=== PATIENT | male | born 1950 | race Caucasian/White ===

== ENCOUNTER 2017-04-16 13:17 | Inpatient (IN) | payer OTHER ==
[~2017-04-16] VITALS: Ht 177.8 cm; Wt 73.2 kg
[2017-04-16] VITALS (7 sets, daily range): BP systolic 112–163; BP diastolic 63–88; PULSE 52–63; RESP 13–19; O2SAT 94–97
--- NOTE | 2017-04-16 13:56 | ED.REPORT ---
HPI-Chest Pain 40 and Over Date of Service Apr 16, 2017 ED Provider: Krzysztof Pelayo MD Pt is an otherwise healthy 66 year old male who presents to the ED complaining of intermittent tight chest pain (2x) onset today. He c/o associated SOB, diaphoresis, and dyspnea with exertion. His pain radiates to his right shoulder blade, neck, and arms bilaterally. He denies hematuria, hematochezia, and any other symptoms. Per pt, he does not have history of ulcers or cardiac medical problems. Pt reports that his symptoms are exacerbated with activity and relieved with rest. He has experienced similar episodes for the last 4 months. The pt has taken 243 mg of ASA (.5 of a 325 mg and an 81mg tablet) prior to arrival with minimal relief. Pt presented to the ED on 02/05/04 with similar symptoms. He was admitted for monitoring with myocardial infarction ruled out upon discharged on 02/06/04. He reports that both his younger and older bother have a history of cardiac related medical issues that have led to multiple stents. Nursing Notes Stated Complaint: CHEST PAIN/SENT FROM URGENT CARE Chief Complaint: Chest Pain Nursing Notes Reviewed: Yes ([facility], meds not reconciled) Allergies: Coded Allergies: No Known Allergies (Verified , 02/05/04) No Active Prescriptions or Reported Meds General Time Seen by MD: 13:55 Chief Complaint Chest pain Hx Obtained From: Patient Arrived By: Walk-in Sudden in Onset?: Yes Onset Occurred: 5 - 8 hours ago Symptom Duration: Intermittent Location: : Substernal Quality: Painful Migration/Movement: Reports: None Severity: Current: Moderate Severity: Maximum: Moderate Recent Healthcare: No recent doctor visit, No recent hospitalization Similar Sx Previous: Yes Past Medical History Past Medical History Notes: Pt presented to the ED on 02/05/04 with similar symptoms. He was admitted for monitoring with myocardial infarction ruled out upon discharged on 02/06/04. Past Surgical History Reports: Tonsillectomy Family History He reports that both his younger and older bother have a history of cardiac related medical issues that have led to multiple stents. His older bother is a smoker, and the younger brother is an alcoholic. Smoking History Never Smoker Social History Alcohol Use: "Social" Drug Use: Denies drug use Other Social History: Good social support Ambulatory Status Independent Review of Systems Respiratory: Reports: Dyspnea on exertion, Shortness of breath Cardiovascular: Reports: Chest pain GI: Denies: Hematochezia Musculoskeletal: Reports: Extremity pain Complete sys rev & neg: except as marked. Female: Denies: Hematuria Physical Exam Initial Vital Signs Vital Signs (First) Date Time Temp Pulse Resp B/P Pulse Ox O2 Delivery O2 Flow Rate FiO2 04/16/17 13:29 36.8 60 13 136/72 97 Room Air Initial VS: Reviewed, Vital signs normal Head / Eyes: Atraumatic, Normocephalic Neck: Supple, Full range of motion Extremities: Vascular intact, Neuro intact Skin: Warm, Dry, No cyanosis Neurologic: Alert, Oriented, Nonfocal Psychiatric: Mood/affect normal, Behavior normal General/Constitutional: Awake, Alert Respiratory / Chest: Atraumatic, Breath sounds NL, Breath sounds = bilat Cardiovascular: Heart rate NL, Regular rhythm, Heart sounds NL Abdomen: Atraumatic, Soft, Non-tender Interpretation & Diagnostics Lab Results Interpretation Result Diagram: 04/16/17 1355 04/16/17 1342 Test 04/16/17 13:42 04/16/17 13:55 Sodium Level 136mEq/L (134-144) Potassium Level 4.4mEq/L (3.5-5.2) Chloride Level 99mEq/L (97-108) Carbon Dioxide Level 23mmol/L (18-29) Blood Urea Nitrogen 26mg/dL (8-27) Creatinine 1.01mg/dL (0.76-1.27) Estimat Glomerular Filtration Rate 79mL/min (>59) Glucose Level 96mg/dL (60-99) Calcium Level 9.5mg/dL (8.5-10.1) Magnesium Level 2.1mg/dL (1.6-2.6) Total Bilirubin 0.5mg/dL (0.0-1.2) Aspartate Amino Transf (AST/SGOT) 31U/L (0-50) Alanine Aminotransferase (ALT/SGPT) 27U/L (0-44) Alkaline Phosphatase 81U/L (25-160) Troponin T 0.054ug/L (0.0-0.011) Total Protein 6.9g/dL (6.4-8.4) Albumin 4.4g/dL (3.4-5.0) White Blood Count 7.0th/mm3 (3.8-10.1) Red Blood Count 4.75mil/mm3 (4.40-5.80) Hemoglobin 14.2g/dL (13.8-17.2) Hematocrit 41.8% (41.0-50.0) Mean Corpuscular Volume 88.0fL (81-100) Mean Corpuscular Hemoglobin 29.9pg (27.0-35.0) Mean Corpuscular Hemoglobin Concent 34.0% (32.0-37.0) Red Cell Distribution Width 13.3% (12.3-15.4) Platelet Count 129bil/L (150-400) Neutrophils (%) (Auto) 71.8% (40-74) Lymphocytes (%) (Auto) 17.0% (14-46) Monocytes (%) (Auto) 7.7% (4-12) Eosinophils (%) (Auto) 3.1% (0-5) Basophils (%) (Auto) 0.3% (0-3) Lab Results Interpretation: CBC nl CMP nl troponin #1 positive ECG Interpretation ECG Interpretation: Normal sinus rhythm with peacked T-waves anteriorly compared to ECG in 08/2015; non-specific finding Time: 13:17 Interpreted by: ED physician Re-Eval/Medical Decision Med Decision/Clinical Course This is a 66-year-old male sent from urgent care with chest discomfort. Patient presents with a high risk story for unstable angina with recurrent exertional related chest discomfort and diaphoresis, shortness of breath markedly worse since yesterday. He has no prior history of coronary disease himself, but both siblings have had heart disease with a younger sibling having 5 stents. The patient reports a previous history of some borderline hyperlipidemia, but then self resolved with exercise, and is not on any lipid medication. He denies diabetes, high blood pressure, smoking. He is currently asymptomatic. He is taken on an 62 mg +81 mg of aspirin prior to arrival. He has normal vitals and a normal exam. EKGs no focal PT waves, troponin is elevated-and his clinical presentation is classic for unstable angina. Assessment discussed with cardiology, the patient's been started on a heparin drip, and his aspirin dose has been adjusted so that is received a full 325 mg. Admitted to the hospitalist service. Cardiac catheterization's anticipated for tomorrow, the patient is being admitted for continued management.. Source of Hx: Old records Time of Eval: 14:10 Re-Evaluation/Progress Note: Informed pt of plan for admission. Pt understands and agrees with plan for admission. All questions addressed. Consultation #1: Referral / Consult Name: Edwin Pickett DO Consulted With: Hospitalist Call Returned at: 02:14 Framing Carpenter: Will see patient, Agrees with eval, Agrees with plan, Accepts admit Consultation #2: Referral / Consult Name: Haleigh Robb MD Consulted With: Cardiology Call Returned at: 14:27 Framing Carpenter: Will see patient, Agrees with eval, Agrees with plan Note: Discussed pt's case. Consultation #3: Referral / Consult Name: Edwin Pickett DO Consulted With: Hospitalist Call Returned at: 14:46 Framing Carpenter: Agrees with eval, Agrees with plan Note: Updated hospitalist on consult with cardiology and troponin. Counseled Regarding: Diagnosis, Lab results, Need for admission Discharge & Departure Primary Impression: Unstable angina Additional Impression: NSTEMI (non-ST elevated myocardial infarction) Disposition: ADMITTED TO HOSPITAL Discharge Condition All VS Reviewed: Yes Condition: Stable Referrals: Diomedes Gasca MD (PCP) Crit Care Except Billable Proc Time Spent: 30-74 minutes Services Performed: Patient management by me, Time spent at bedside, Reviewing test results, Reviewing imaging, Discussing patient care, Documentation in record, Time with fam/surrogate Scribe Attestation Portions of this note were transcribed by Trupti Apple. I, Dr. Pelayo personally performed the history, physical exam and medical decision-making; I reviewed and confirmed the accuracy of the information in the transcribed note. Signed by: Deena Smith, 04/16/17. copies to: Diomedes Gasca MD, Matthew F MD Apr 16, 2017 13:56 Trupti Rose Apr 16, 2017 14:17
[2017-04-16 14:09] LABS: BASOPHILS % (AUTO) 0.3 % (0-3); EOSINOPHILS % (AUTO) 3.1 % (0-5); MONOCYTES % (AUTO) 7.7 % (4-12); Mean Corpuscular Hemoglobin 29.9 pg (27.0-35.0); NEUTROPHILS % (AUTO) 71.8 % (40-74); Platelet Count 129 bil/L (150-400)
[2017-04-16] MEDS ORDERED: Heparin 5,000 Unit/mL Inj IVPUSH ONE (14:15)
[2017-04-16] MEDS ORDERED: Heparin 25K Unit/500mL 0.45 NS 25,000 UNIT in IV Premix 1 EACH IV ONE (14:15)
[2017-04-16 14:24] LABS: Magnesium 2.1 mg/dL (1.6-2.6)
[2017-04-16 14:26] LABS: TROPONIN T 0.054 ug/L (0.0-0.011)
[2017-04-16] MEDS ORDERED: Ondansetron 2 mg/mL 2 mL Inj IVPUSH PRN (14:55)
[2017-04-16] MEDS ORDERED: Alum-Mag Hydrox-Simeth 30 mL Suspension PO PRN (14:55)
[2017-04-16] MEDS ORDERED: Senna-Docusate 8.6-50 mg Tablet PO PRN (15:20)
[2017-04-16] MEDS ORDERED: Polyethylene Glycol (PEG) 17 Gm Powder PO PRN (15:20)
[2017-04-16] MEDS: Sodium Chloride LOK Flush 10 mL Syringe IVFLUSH SCH (16:07)
--- NOTE | 2017-04-16 16:26 | DRSVH ---
PROCEDURE: X-RAY CHEST ONE VIEW, PORTABLE ([id number]) INDICATIONS: Chest pain. TECHNIQUE: One view of the chest was acquired. COMPARISON: None. FINDINGS: Surgical changes and devices: None. Lungs and pleura: There are bilateral calcified pleural plaques. No pleural effusions or pneumothora x. Lungs are clear. Mediastinum: Mediastinal contours appear normal. Heart size is normal. Bones and chest wall: No suspicious bony lesions. Overlying soft tissues appear unremarkable. IMPRESSION: Bilateral calcified pleural plaques. Recommend correlation with asbestos exposure. Dictated by: Dilia Granda M.D. on 04/16/2017 at 14:36 Approved by: Dilia Granda M.D. on 04/16/2017 at 14:38
[2017-04-16 16:33] LABS: APPEARANCE,URINE CLEAR (CLEAR,HAZY); COLOR,URINE STRAW (YELLOW); OCCULT BLOOD,URINE NEGATIVE (NEGATIVE); PH,URINE 5.5 (5.0-8.0); UROBILINOGEN,URINE NORMAL (NORMAL)
--- NOTE | 2017-04-16 17:16 | NUR ---
Admit Note Patient admitted to floor around 1515. A/O. Denies pain. Settled/oriented in room. Heparin gtt running at 1000 u/hr, which was started n Ed. Tele SB, 50s. ordered OK for patient to eat. Will be NPO after MN tonight. Urine spec sent to lab. Patient knows to notify staff with any chest discomfort, sob, nausea, or sweating. Spouse at bedside for comfort.
[2017-04-16] MEDS ORDERED: Heparin 5,000 Unit/mL Inj IVPUSH PRN (17:40)
[2017-04-16] MEDS ORDERED: Heparin 25K Unit/500mL 0.45 NS 25,000 UNIT in IV Premix 1 EACH IV SCH (17:40)
--- NOTE | 2017-04-16 17:50 | PCM.HPMED ---
Subjective Date of Service Apr 16, 2017 Primary Provider: Admitting Physician: Edwin Pickett DO Primary Care Physician: Diomedes Gasca MD Attending Physician: Edwin Pickett DO Admit Status: From the Emergency Department Chief Complaint: Chest pain History of Present Illness: Mr. Monterroso is a 66 year old male with past medical history remarkable for pleural calcifications that presented to the ED with right-sided chest pain with associated shortness of breath. Since this morning he has had two episodes of right sided CP that radiates from the right scapular region to his anterior chest. The patient describes the pain today is 10 out of 10 lasting for approximately 30 minutes. He denies nausea or vomiting with these episodes but admits to bilateral arm tingling and diaphoresis. He has had episodes of CP since the early spring, which occurs weekly. The patient states that when the chest pain initially began in the spring the pain would have been rated at 6 out of 10. His chest pain episodes typically occur after breakfast as he is rushing into work. The patient denies any issue with food intolerance but reportedly eats a low-fat diet with his meals generally containing high protein and vegetables and low carb. The patient works out 2 or 3 times a week on an elliptical machine for 30 minutes and denies any issues with chest pain during his cardio routine except for one occurrence one month ago. He denies having these episodes at rest. The episodes are generally relieved by rest and deep breathing. Today his pain did not relieve with rest. Within the last two weeks he was taking a baby aspirin and today with his chest pain he took half a full dose aspirin as well as a baby aspirin. The patient has noted a mild cough but denies wheezing. His pain is not positional and does not increase with deep breathing. The chest pain episodes generally last 15-30 minutes. He had a previous episode of CP prior to this spring in 2003 that was ruled out to be an RI and related to a stressful work life. He was also diagnosed with hyperlipidemia at unknown date which he reports was treated with lifestyle interventions and no medication. The patient states that his son who is a chiropractor in [place] ordered a chest x-ray which noted a possible lung nodule. The son then follow-up CT which showed pleural calcifications. The patient was then referred to a traffic representative in [place] Dr. Winkler who stated that the patient's lungs were pristine. 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 Review of Systems: A comprehensive review of systems is obtained and all are negative except what is included in the history of present illness. Allergies Coded Allergies: scallops (Verified Allergy, Severe, vomiting, 04/16/17) Home Medications Denies taking prescription medications ASA 81mg daily Daily Multivitamin PMH Hyperlipidemia Known pleural plaques One-time exposure to asbestos at 17 years old Chest Pain in 2003 (RI was ruled out) Surgical History Tonsillectomy Family History Older brother with coronary artery disease stents Younger brother Bipolar Disorder and Obesity. 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 [employer] Hx Alcohol Use: Yes (occassional) Alcoholic Drinks Per Day: 1-2 glasses of wine/per week or 1-2 cans of beer/week Hx Substance Use: No Hx Tobacco Use: No Smoking Status: Never Smoker Living Arrangement: with Family Exam Vital Signs Vital Sign - Last Date Time Temp Pulse Resp B/P Pulse Ox O2 Delivery O2 Flow Rate FiO2 04/16/17 17:12 36.4 63 16 163/79 97 Room Air Exam General: Middle-age man with normal body habitus and good musculature is in no acute distress Eyes: Pupils equal round and reactive to light, extraocular motion intact, anicteric sclera, noninjected conjunctiva HENT: Normocephalic atraumatic, moist mucous membranes without central cyanosis , oropharynx clear without purulent exudate or cobblestoning mucosa Neck: Supple, trachea midline, without thyromegaly or JVD Cardiovascular: Regular rate and regular rhythm, S1-S2 present, no S3-S4, without murmurs rubs or gallops noted Lungs: Clear to auscultation bilaterally without wheezing rales or rhonchi Abdomen: Soft, nontender, nondistended, tympanic to percussion, normal active bowel sounds, without organomegaly Extremities: No cyanosis clubbing or edema noted, pulses intact bilaterally at dorsalis pedis and radial : No Cabrera catheter in place Skin: Warm and dry Neuro: Nonfocal neurologic exam, able to move all extremities Psych: Normal mood and affect Lab and Diagnostics Result Diagram: 04/16/17 1355 04/16/17 1342 X-Rays, CTs and MRIs X-RAY CHEST ONE VIEW, PORTABLE IMPRESSION: Bilateral calcified pleural plaques. Recommend correlation with asbestos exposure. Approved by: Dilia Granda M.D. on 04/16/2017 at 14:38 Assessment & Plan Mr. Monterroso is a 66 year old male with past medical history remarkable for pleural calcifications that presented to the ED with right-sided chest pain with associated shortness of breath. # Acute Non-ST segment elevation myocardial infarction - Patient notes recurrent chest pain which appears to be prominent in the morning with some association with exertion and stress - Initial troponin drawn in the ED at 0.05 this will be repeated as well as CK CK-MB - Stat echocardiogram to check for wall motion abnormality - Cardiology was consulted from the ED with recommendations to start a heparin drip this will be continued - Admit to PCC - Metoprolol 25 mg every 8 hours - Lisinopril 5 mg twice a day - The patient is already had three quarters of a full dose aspirin today - Continue baby aspirin daily - Cardiology to initiate clopidogrel loading dose prior to likely cardiac catheterization - Initiate high-dose statin therapy with atorvastatin 40 mg - Lipid panel ordered - Morphine IV, sublingual nitroglycerin, and when necessary EKGs for recurrent chest pain # Acute on chronic hypertension - The patient initially presented normotensive however subsequently developed systolic blood pressures greater than 150 - Metoprolol 25 mg every 8 hours - Lisinopril 5 mg twice a day # Chronic kidney disease stage II - Creatinine of 1.01 with GFR of 79 and admitted - Patient appears euvolemic and does not describe recent dehydration making acute kidney injury unlikely - Likely secondary to chronic hypertension - Monitor for elevation of creatinine after starting VINNY inhibitor # presumed acute Thrombocytopenia - Platelets of 129 on admission - Patient has recieved 3/4 of a full dose aspirin today - Cardiology to initiate dual antiplatelet with clopidogrel loading dose prior to cardiac catheterization - monitor GI prophylaxis: None indicated at this time DVT prophylaxis: Heparin drip CODE STATUS full Patient is admitted for observation status given presenting symptoms, likely diagnosis, possible complications, and required treatments expected length of stay less than to midnights. Pain Evaluation: Adequate Pain Control GI Prophylaxis: Not indicated VTE Prophylaxis Indicated: Meets Criteria for Anticoag Therapy VTE Prophylaxis: Other (heparin drip) Resuscitation Status: CPR: Attempt Resuscitation Time spent 50 minutes Attending Statement I have seen and evaluated the patient at bedside in addition to directly supervising care provided by resident physician Dr Perez. I agree with above documentation from 04/16/2017 John Perez DO Apr 16, 2017 17:50 Edwin Pickett DO Apr 16, 2017 22:11
[2017-04-16 18:41] LABS: TROPONIN T 0.068 ug/L (0.0-0.011)
[2017-04-17] VITALS (20 sets, daily range): BP systolic 95–122; BP diastolic 49–67; PULSE 41–61; RESP 12–18; O2SAT 95–99
[2017-04-17] MEDS: Sodium Chloride LOK Flush 10 mL Syringe IVFLUSH SCH ×3 (00:26→18:08)
[2017-04-17 02:28] LABS: BASOPHILS % (AUTO) 0.4 % (0-3); MONOCYTES % (AUTO) 6.7 % (4-12); Mean Corpuscular Volume 88.1 fL (81-100); Platelet Count 125 bil/L (150-400)
[2017-04-17 03:29] LABS: TROPONIN T 0.136 ug/L (0.0-0.011)
--- NOTE | 2017-04-17 05:33 | NUR ---
Care note A/O x3, denies chestpain or SOB. Indicates most pain associated with sx prior to admission was r/t activity. Heparin gtt running, last adjusted rate up to 1050u/hr. Voiced some anxiety about process and life changes, provided resource material. NPO after midnight, 2nd IV in R FA started, and Heart Cath procedure booklet given - anticipated procedure in AM. Rested quietly, at bedside, indicated no further needs. VSS. Tele SB in 50's.
[2017-04-17] MEDS ORDERED: 0.9% Sodium Chloride 1,000 ML IV ONE (09:34)
[2017-04-17] MEDS ORDERED: diphenhydrAMINE 25 mg Capsule PO ONE (09:35)
--- NOTE | 2017-04-17 12:10 | CONS ---
[address] [address] CONSULTATION REPORT PATIENT: HILARIO WALSH : 1950 MR#: [id number] ADMIT: 04/16/2017 JOB ID: [id number] CARDIOLOGY CONSULTATION: DATE OF SERVICE: 04/17/2017 CHIEF COMPLAINT: Chest pressure. HISTORY OF PRESENT ILLNESS: The patient is a delightful, 66-year-old man with strong family history of coronary artery disease but no other obvious CAD risk factors. For the past several days, he has been noticing exertional chest discomfort when he walks around at his employment site of [employer]. Cardiology is consulted to assist with management. His troponin T was elevated, but at this moment in time, he is pain free. PAST MEDICAL HISTORY: None. FAMILY HISTORY: Both brothers had early coronary artery disease. SOCIAL HISTORY: Does not smoke. Works at [employer]. Accompanied by his at the bedside. REVIEW OF SYSTEMS: No bleeding. Otherwise 10 point review of systems is negative. ALLERGIES: SCALLOPS. MEDICATIONS: At home, none. Hospital medications: 1. Aspirin 81 mg daily. 2. Lipitor 40 mg daily. 3. Metoprolol tartrate 25 mg every 8 hours. 4. Heparin drip per ACS protocol. 5. Lisinopril 5 mg twice a day. 6. Morphine as needed. PHYSICAL EXAMINATION: Vital signs: Temperature 36.8, blood pressure 99/55, pulse 52 up to 61 beats per minute. Satting 95% on room air. Very pleasant gentleman. No apparent distress. Eyes: No scleral icterus. Neck is supple. No lymphadenopathy. No carotid bruits. Heart: Normal S1, S2. No murmurs. Lungs: Clear to auscultation anteriorly. Abdomen is soft, positive bowel sounds. No hepatosplenomegaly. Extremities: Warm and well perfused. No clubbing, cyanosis, or edema. Skin: No rashes or lesions. Femoral artery exam demonstrates intact right common femoral artery pulsation with no bruits. LABORATORY DATA: Labs reviewed. CBC is normal with the exception of mildly reduced platelet count of 125, creatinine is one. Troponin T most recently 0.15. Total cholesterol 226, triglycerides 220, HDL 38, LDL 144. Transaminases are normal. A1c is 5.6, fasting blood sugar is 96. Platelets are normal. IMAGING: Chest x-ray demonstrated pleural plaques. The patient has had a pulmonary evaluation and was told this is probably due to asbestos exposure. Otherwise chest x-ray is reassuring. Echocardiogram, I reviewed personally and it demonstrates subtle focal distal septal and mid anterior septal hypokinesis based on the available views. No valvular abnormalities. ASSESSMENT AND PLAN: A 66-year-old man with non-ST segment elevation myocardial infarction, on medical therapy. He is a good candidate for invasive therapy. Consent obtained. All questions answered. Thank you very much for the opportunity to evaluate this patient.
[2017-04-17] MEDS ORDERED: Heparin 1,000 Units/500 mL NS Premix IV ONE (13:24)
[2017-04-17] MEDS ORDERED: Heparin 1,000 Unit/mL 10 mL Inj ONE (13:24)
[2017-04-17] MEDS ORDERED: Heparin 10,000 Unit/1,000 mL NS Premix IV ONE (13:24)
[2017-04-17] MEDS ORDERED: 0.9% Sodium Chloride 1,000 ML ONE (13:28)
--- NOTE | 2017-04-17 13:37 | PCM.PNMED ---
Subjective Date of Service Apr 17, 2017 Subjective Subjective: Patient laying in bed on exam he does not complain of any chest pain this morning states that he feels considerably better as compared to yesterday. He is aware of plans for catheterization procedure this afternoon. Events Overnight: No acute events overnight. ROS: Denies fever/chills, nausea/vomiting, headache, weakness, abdominal pain, chest pain, shortness of breath, increased swelling in hands or feet. Exam Vital Signs Vital Sign - Last Date Time Temp Pulse Resp B/P Pulse Ox O2 Delivery O2 Flow Rate FiO2 04/17/17 12:36 36.6 57 16 112/67 99 Room Air Intake and Output 04/16/17 04/16/17 04/17/17 Cumulative From/Thru 15:00 23:00 07:00 04/16/17 13:29 - 04/17/17 05:13 Intake Total 150 ml 0 ml 150 ml Output Total 500 ml 800 ml 1300 ml Balance -350 ml -800 ml -1150 ml Intake Oral 150 ml 0 ml 150 ml Output Urine Total 500 ml 800 ml 1300 ml # Bowel Movements 0 0 Exam General: No acute distress, well-developed, well-nourished Head: Normocephalic, atraumatic. External ears without defect. Eyes: Pupils equal, round, and reactive to light and accommodation. Anicteric sclerae, moist conjunctivae. Neck: Normal range of motion, no lymphadenopathy noted Cardiovascular: Regular rate and rhythm with no murmurs, rubs, or gallops appreciated Pulmonary: Clear to auscultation bilaterally with no crackles, wheezes, or rhonchi. Normal respiratory effort with no use of accessory muscles. Abdomen: Bowel tones present. Soft, nontender, nondistended. Extremities: No clubbing, cyanosis, edema Skin: Normal temperature, turgor, and texture; no rash, ulcers, or subcutaneous nodules appreciated. Neurological: Cranial nerves grossly intact. Reflexes, coordination, and sensory function within normal limits. Normal muscle strength, tone, and bulk. Psychiatric: Normal mood and affect. Alert and oriented to person, place, and time IVs and Medications IV Fluids 1000 mL normal saline delivered with IV medications. Medications Reviewed: Medications were reviewed in detail Lab and Diagnostics Result Diagram: 04/17/1721904/17/17219 X-Rays, CTs and MRIs X-RAY CHEST ONE VIEW, PORTABLE IMPRESSION: Bilateral calcified pleural plaques. Recommend correlation with asbestos exposure. Approved by: Dilia Granda M.D. on 04/16/2017 at 14:38 Assessment & Plan Mr. Monterroso is a 66 year old male with past medical history remarkable for pleural calcifications that presented to the ED with right-sided chest pain with associated shortness of breath. Acute Non-ST segment elevation myocardial infarction - Patient notes recurrent chest pain which appears to be prominent in the morning with some association with exertion and stress - Continued elevated troponins, progressively increasing - Positive CK-MB - Echocardiogram completed today, results pending -Continue heparin drip - Metoprolol 25 mg every 8 hours - Lisinopril 5 mg twice a day - Continue baby aspirin daily - Cardiology to initiate clopidogrel loading dose prior to cardiac catheterization 04/17 - Atorvastatin 40 mg - Continue Morphine IV, sublingual nitroglycerin for pain Acute on chronic hypertension - The patient initially presented normotensive however subsequently developed systolic blood pressures greater than 150 - Metoprolol 25 mg every 8 hours - Lisinopril 5 mg twice a day Chronic kidney disease stage II - Creatinine of 1.01 with GFR of 79 - Patient appears euvolemic and does not describe recent dehydration making acute kidney injury unlikely - Likely secondary to chronic hypertension - Monitor for elevation of creatinine after starting VINNY inhibitor Presumed acute Thrombocytopenia - Platelet counts continue to be low - Aspirin 81 mg daily - Cardiology to initiate dual antiplatelet with clopidogrel loading dose prior to cardiac catheterization - monitor GI prophylaxis: None indicated at this time DVT prophylaxis: Heparin drip CODE STATUS full Disposition: Patient will likely require another 24 hours of monitoring post catheterization before return home GI Prophylaxis: Not indicated VTE Prophylaxis: Other (heparin drip) Resuscitation Status: CPR: Attempt Resuscitation Time spent 25 minutes Attending Statement I have seen and evaluated the patient at bedside in addition to directly supervising care provided by Dr Parrish on 04/17/2017. I agree with above documentation. Solomon Parrish DO Apr 17, 2017 13:37 Edwin Pickett DO Apr 18, 2017 07:23
--- NOTE | 2017-04-17 13:44 | NUR ---
Social Work: Initial Assessment/Multidisciplinary Rounds D: Per EMR review, pt is a 66 year old male admitted for unstable angina. pt insurance is [employer]; pt states he has not yet applied for Medicare because he is currently working. Pt has never had HH or skilled rehab. NOK is Alia Monterroso, , . PCP is Diomedes Gasca MD. Advanced directives not completed- information provided. Readmit score is low, 0/8. Pt discussed in Multidisciplinary rounds. Capacity for self care discussed; no concerns or needs at this time. CLOTHING ROOM SUPERVISOR met with the patient and spouse at bedside. Sw role explained, contact info and d/c planning checklist provided. See initial assessment. Pt lives in [place] with his . Pt is I with ADLS at baseline and works at [employer]. Pt uses no DME, has never had HH or skilled rehab. Pt lives in a split level home and has no issues navigating stairs. Pt and express no concerns or needs for discharge. will transport. A: Pt who is I at baseline. P: Anticipate pt to discharge home via POV and no further social work needs identified. CLOTHING ROOM SUPERVISOR to continue to follow to assess for unmet needs. JEANINE Ahumada Addendum: 04/17/17 at 1355 by KIYA KUMARI Amended: Links added.
[2017-04-17] MEDS ORDERED: fentaNYL-PF 50 mCg/mL 2 mL Inj ONE (13:51)
--- NOTE | 2017-04-17 14:08 | NUR ---
P: Chest pain I: Pt denies any chest pain or shortness of breath. SB 50's and Lopressor held this am. NPO for heart cath. Heparin gtt dc'd [address] Wright's request. NS 100cc/hr. Report given to home performance laborer and report given to THONG. at bedside and went with pt to home performance laborer. Saline lock patent without redness or swelling at the site. Voiding qs. Room air. E: Stable S: Alert and oriented. Consent signed.
[2017-04-17] MEDS ORDERED: Nitroglycerin 50,000 mcg/250 mL D5W Premix IV ONE (14:35)
--- NOTE | 2017-04-17 15:15 | CS94 ---
[place] [id number] DIAGNOSTIC CARDIAC CATHETERIZATION PATIENT: HILARIO WALSH : 1950 MR#: [id number] ADMIT: 04/16/2017 JOB ID: [id number] SERVICE DATE: 04/17/2017 CHIEF COMPLAINT: Chest pressure. PATIENT PRESENTATION: The patient is a delightful 66-year-old man with a strong family history of early-onset coronary artery disease who presents with non-STEMI and focal wall motion abnormalities in LAD distribution on echo. PROCEDURES PERFORMED: 1. Left heart catheterization-selective coronary angiograms. 2. Right common femoral artery vascular access under ultrasound guidance. 3. Femoral angiogram. 4. Hemodynamic recording left ventricular end-diastolic pressure. METHOD: Following informed consent, the patient was prepped and draped in the usual sterile fashion. A 6-Stateless sheath was placed in the right common femoral artery. Sheath placement was confirmed via femoral angiogram. JL4 and JR4 catheters used to engage the left main and right coronary artery ostia, respectively. Hand injection and craniocaudal angulation was used to obtain selective coronary angiograms over a wire. Pigtail was advanced into the left ventricle. Left ventricular end-diastolic pressure was recorded. Pigtail was withdrawn from the left ventricle into the aorta. Hemodynamic measurements were obtained. At this point in time, the case was terminated and turned over for intervention. COMPLICATIONS: None. HEMODYNAMICS: Heart rate 50 beats per minute. Blood pressure 100/50 with mean arterial pressure of 70 mmHg. Left ventricular end-diastolic pressure is 10 mmHg. There is no evidence of aortic stenosis based on pullback. Right common femoral artery: Right common femoral artery gives rise to SFA and profunda. The bifurcation is at the lower third of the femoral head. The sheath enters the bifurcation. There is no evidence of contrast extravasation or dissection. Coronary angiograms: Left main is a short vessel. It gives rise to LAD and the circumflex. No obstructive lesions are seen. There is excellent blow-back and no dampening on engagement. Left anterior descending is a wrap-around vessel. It gives rise to a big first diagonal branch. There is a 70% proximal calcified lesion in the LAD. There is an 80% mid LAD lesion. There are a few small diagonal branches and many septal perforators. Circumflex is a codominant vessel. It gives rise to a very small first obtuse marginal branch, large second obtuse marginal branch, medium 3rd, medium 4th obtuse marginal branch, and medium 5th obtuse marginal branch. There is a 90% tubular lesion in the midportion of the circumflex, just proximal to the first obtuse marginal branch. Right coronary artery is a codominant vessel. It gives rise to PDA. No obstructive lesions are seen. IMPRESSION: Two-vessel disease involving mid left anterior descending (LAD), ostial first large diagonal branch, and mid circumflex. PLAN: Intervention. Thank you very much for the opportunity to evaluate this patient.
[2017-04-17] MEDS ORDERED: 0.9% Sodium Chloride 400 ML (4 HRS) IV ONE (15:55)
[2017-04-17] MEDS ORDERED: 0.9% Sodium Chloride 250 ML BOLUS IV PRN (15:55)
[2017-04-17] MEDS ORDERED: Ondansetron 2 mg/mL 2 mL Inj IVPUSH PRN (15:55)
[2017-04-17] MEDS ORDERED: Atropine 1 mg/10 mL (Code) Syringe IVPUSH PRN (15:55)
[2017-04-17] MEDS ORDERED: Sodium Chloride LOK Flush 10 mL Syringe IVFLUSH PRN (15:55)
--- NOTE | 2017-04-17 16:12 | DI95 ---
[place] [address] INTERVENTIONAL CARDIAC CATHETERIZATION PATIENT: HILARIO WALSH : 1950 MR#: [id number] ADMIT: 04/16/2017 JOB ID: [id number] DATE OF SERVICE: 04/17/2017 PROCEDURE: 1. Percutaneous intervention on the left anterior descending. 2. Percutaneous intervention on the diagonal. 3. Percutaneous intervention on the circumflex. INDICATION: Acute coronary syndrome. PROCEDURAL DETAILS: The reader and the coders are referred to the procedure log for complete details. Briefly, 6-Singaporean system. A Voda 3.5 guide was used. A Run-through wire was used to cross into the circumflex. This was directly stented with a 3.0 x 15 mm Xience drug-coated stent delivered at 16 atmospheres with excellent angiographic results. Next, LAD intervention. A Run-through wire was placed in the diagonal. The diagonal was pre-dilated with a 2.0 balloon and then stented with a 225 x15 mm stent at 14 atmospheres with good angiographic results. Next, a second wire was placed in the LAD and the mid LAD was stented with a 2.75 x 15 mm Xience drug-coated stent. A 2.0 balloon was then placed into the ostium of the diagonal and the stent balloon in the LAD was pulled back. A kissing balloon inflation was then done. Final angiographic results were excellent. In summary, successful two-vessel intervention.
--- NOTE | 2017-04-17 17:41 | NUR ---
THONG Patient to [facility] bed 9 at 1530 from clinical lab specialist stent placement. Patient C/O heart burn. MD aware. Resolved with PO intake. No bleeding or hematoma at right groin starclose. Pedal pulses present. Taking PO but HNV. Transferred by bed to room 2019 at 1730. Report to receiving RN.
[2017-04-18 01:02] VITALS: BP 96/56; PULSE 57; RESP 16; O2SAT 95
[2017-04-18] MEDS: Sodium Chloride LOK Flush 10 mL Syringe IVFLUSH SCH ×2 (01:05→11:03)
[2017-04-18 02:46] LABS: BASOPHILS % (AUTO) 0.4 % (0-3); EOSINOPHILS % (AUTO) 3.8 % (0-5); MONOCYTES % (AUTO) 9.6 % (4-12); Mean Corpuscular Hemoglobin 30.1 pg (27.0-35.0); Mean Corpuscular Volume 88.7 fL (81-100); NEUTROPHILS % (AUTO) 62.8 % (40-74); Platelet Count 113 bil/L (150-400)
[2017-04-18 05:59] VITALS: PULSE 55
--- NOTE | 2017-04-18 06:31 | NUR ---
Groin Site/Tele Patient's right groin site soft, non-tender; moderate old sanguineous drainage visible on dressing. Patient sinus mitra overnight with rates in the 40s-50s. Denies chest pain, shortness of breath. Continue to monitor.
[2017-04-18 07:55] VITALS: BP 119/62; PULSE 57; RESP 16; O2SAT 97
[2017-04-18 09:20] VITALS: PULSE 61
--- NOTE | 2017-04-18 10:25 | PCM.PNCARD ---
Subjective Date of service Apr 18, 2017 Chief Complaint Chest pain History of Present Illness This is a 66 year old male with past medical history of pleural calcifications who presented with chest pain and SOB to the ED. he was having right-sided chest pain 10 out of 10 radiating to the scapula. He complained of diaphoresis and bilateral arm paresthesias. He noted having chest pain in the mornings while going to work. He denies a history of epigastric pain associated with food. He states he typically works out on an elliptical machine 30 minutes a few times a week with no associated chest pain. He denied having chest pain or dyspnea at rest . Pain is typically relieved by rest. He has a history of hyperlipidemia, short smoking history, and family history coronary artery disease. Cardiac catheterization was completed by Dr. Robb on 04/17/17 finding 2 vessel disease involving mid left anterior descending (LAD), ostial first large diagonal branch, and mid circumflex. The cardiac catheterization was followed by director customer Dr. Guthrie who used balloon angioplasty and 3 drug-eluting stents were placed 2 in the LAD and 1 in the diagonal. Today the patient is feeling quite well. When examined he was eating breakfast lying in bed in comfortably without distress. He states he had a short episode of left-sided chest discomfort radiating to his thoracic spine. The pain is reproducible with palpation to the third intercostal space. He states this feels like musculoskeletal pain. He states he did not receive his metoprolol this morning due to hypotension. He feels slightly lightheaded when he is hypotensive. He does not currently feel this way. Constitutional: Denies: Chills, Fever, Sweats ENT: Denies: Hoarseness Cardiovascular: Denies: Chest Pain, SOB on Exertion Respiratory: Denies: Shortness of Breath Gastrointestinal: Denies: Change in Appetite Neurological: Denies: Confusion, Dizziness Exam Vital Signs Vital Sign - Last Date Time Temp Pulse Resp B/P Pulse Ox O2 Delivery O2 Flow Rate FiO2 04/18/17 09:20 61 04/18/17 07:55 36.6 16 119/62 97 Room Air Intake and Output 04/17/17 04/17/17 04/18/17 Cumulative From/Thru 15:00 23:00 07:00 04/16/17 13:29 - 04/18/17 06:53 Intake Total 400 ml 400 ml 950 ml Output Total 1225 ml 700 ml 3225 ml Balance -825 ml -300 ml -2275 ml Intake Oral 400 ml 400 ml 950 ml Output Urine Total 1225 ml 700 ml 3225 ml # Bowel Movements 0 General: Pleasant Cooperative Relaxed appearing Well developed, well nourished Skin: Warm & dry to touch Head: Normocephalic Eye: EOMS intact Ears, Nose & Throat: Ears no gross abnormalities Neck: No JVD Carotid bruit present Chest: Clear auscultation w/o rales/wheeze Cardiac: Regular rhythm with normal S1-S2 No murmurs, gallops or rubs Pulses: Pulses full/equal all extremities (no right-sided femoral bruit present) Extremities: Warm w/o deformities,erythema noted (right femoral artery intervention site without ecchymosis, hematoma or erythema) No cyanosis/clubbing/edma bilat Neurological: Alert & oriented Psychological: Affect & interaction appropriate Normal memory Lab and Diagnostics Result Diagram: 04/18/1722904/18/17 023 X-Rays, CTs and MRIs X-Rays, CTs and MRIs X-RAY CHEST ONE VIEW, PORTABLE IMPRESSION: Bilateral calcified pleural plaques. Recommend correlation with asbestos exposure. Approved by: Dilia Granda M.D. on 04/16/2017 at 14:38 Assessment & Plan Assessment This is a 66 year old male with past medical history remarkable for pleural calcifications that presented to the ED with right-sided chest pain with associated shortness of breath. Acute Non-ST segment elevation myocardial infarction, present on admission, resolved - Wet read of echocardiogram showed distal left ventricular hypokinesis - Cardiac catheterization found 3 vessel disease - Cardiac intervention was done with balloon angioplasty and placement of 3 stents - Metoprolol 12.5 mg every 8 hours consider switching to metoprolol succinate 12.5 mg daily - Continue Lisinopril 5 mg twice a day - Continue aspirin 81 mg daily - Continue Atorvastatin 40 mg daily - Continue clopidogrel daily - Initiate high-dose statin therapy with atorvastatin 40 mg - Patient to be discharged with nitroglycerin Acute on chronic hypertension, present on admission, resolving - Patient initially had elevated blood pressures, these have resolved with following medications. - Metoprolol 25 mg every 8 hours, consider switching as above. - Lisinopril 5 mg twice a day, continue this medication Chronic kidney disease stage II, present on admission, resolved. - Creatinine of 1.01 with GFR of 79 and admitted, creatinine 0.87 on 04/18/17 - Patient have not been euvolemic as initially thought. This may have been an acute kidney injury as opposed to chronic kidney disease. - Should be followed as an outpatient. From a cardiology standpoint patient is cleared for discharge today. Problems: Pain Evaluation: Adequate Pain Control GI Prophylaxis: Not indicated VTE Prophylaxis: Other (heparin drip) Resuscitation Status: CPR: Attempt Resuscitation Mary Lopez DO Apr 18, 2017 10:25 Mary Lopez DO Apr 18, 2017 10:25
[2017-04-18 12:19] VITALS: BP 101/59; PULSE 67; RESP 15; O2SAT 98
--- NOTE | 2017-04-18 12:33 | DRSVH ---
[facility] [address] [place] [address] Echocardiogram Report Name: HILARIO WALSH EStudy Date: 04/17/2017 Height: 70 in Hospital Exam Location: [facility] Weight: 161 lb Gender: Male BSA: 1.9 m2 : 1950 Age: 66 yrs BP: 95/55 mmHg Reason For Study: Chest Pain Ordering Physician: HOSPITALIST [facility] Performed By: Laura Kamara Referring Physician: [place] Hospitalist Interpretation Summary Overall left ventricular systolic function is preserved with the ejection fraction visualy estimated to be 60-65% with probable mild hypokinesis in the proximal inferior and posterior segments but no other obvious focal wall motion abnormalities. Left ventricular wall thickness is mildly increased but diastolic parameters suggest normal left ventricular diastolic function and normal filling pressures. The right ventricle is normal in size and function. The right ventricular systolic pressure is estimated at 23 mmHg assuming a right atrial pressure of 3 mm Hg. Both atria are normal in size. There is no significant valvular heart disease. Procedure: A two-dimensional transthoracic echocardiogram with color flow and Doppler was performed. The study quality was technically adequate. There is no prior echocardiogram noted for this patient. The patient was in normal sinus rhythm during the exam. Left Ventricle: The left ventricle is normal in size. Left ventricular wall thickness is mildly increased. Overall left ventricular systolic function is preserved. The ejection fraction is estimated to be 60-65%. There is probable mild hypokinesis in the proximal inferior and posterior segments. There are no other obvious focal wall motion abnormalities. Assessment of diastolic parameters indicates normal left ventricular diastolic function and normal filling pressures. Right Ventricle: The right ventricle is normal in size and function. Atria: Both atria are normal in size. The interatrial septum is intact with no evidence for an atrial septal defect. Mitral Valve: The mitral valve leaflets appear mildly thickened, but open well. There is trace mitral regurgitation. Aortic Valve: The aortic valve is trileaflet. The aortic valve is slightly calcified. The aortic valve opens well. There is trace aortic regurgitation. Tricuspid Valve: The tricuspid valve is normal in structure and function. There is trace tricuspid regurgitation. The right ventricular systolic pressure is estimated at 23 mmHg assuming a right atrial pressure of 3 mm Hg. Pulmonic Valve: The pulmonic valve is normal in structure and function. There is trace pulmonic regurgitation. There is no significant valvular heart disease. Great Vessels: The aortic root is mildly dilated. The ascending aorta could not be visualized. The IVC is of normal diameter and collapses greater than 50% with a sniff. This suggests a low right atrial pressure of 3 mm Hg. Pericardium/ Pleura There is no pericardial effusion. There is an anterior echo-free space consistent with a fat pad. There is no pleural effusion. MMode/2D Measurements & Calculations LVIDd: 4.5 cm RA long axis LVOT diam LVIDs: 3.5 cm LA A2 area: 14.0 cm FS: 23.2 % LA A4 area: 14.1 cm RA area Ao root diam IVSd: 1.3 cm LA length (vol): 4.5 cm : 3.5 cm LVPWd: 0.97 cm LA vol: 37.4 ml : 12.1 cm LA vol index RA vol: 27.0 ml RA : 19.7 ml/m2 : 14.2 mm2 LV coker. diameter/BSA LV sys. diameter/BSA TAPSE: 2.4 cm (cm/m^2): 2.4 (cm/m^2): 1.8 Doppler Measurements & Calculations Ao V2 max: 90.9 cm/sec MV E max ken MV E/A: 1.2 TR max ken Ao max P.3 mmHg : 60.6 cm/sec : 195.7 cm/sec Ao mean P.9 mmHg MV A max ken TR max PG LVOT Max Ken : 52.5 cm/sec : 19.9 mmHg : 88.6 cm/sec PA V2 max DEWAYNE(I,D): 3.6 cm : 66.3 cm/sec sev ratio: 0.91 PA mean PG : 0.96 mmHg MV dec time: 0.17 sec Ao V2 mean LV V1 max PG PA V2 mean : 65.7 cm/sec : 46.2 cm/sec Ao V2 VTI: 20.7 cm LV V1 VTI PA pr(Accel) DEWAYNE(V,D): 3.9 cm2 : 18.8 cm : -0.41 mmHg DEWAYNE indexed to BSA (cm^2/m^2): 1.9 Reading Physician:12:32 PM
--- NOTE | 2017-04-18 13:10 | NUR ---
Social Work- Readiness for Discharge/Multidisciplinary Rounds Data: EMR reviewed. Pt is on day 2 of hospitalization for unstable angina per H&P. Pt discussed in multidisciplinary rounds, pt is likely to discharge home, no active orders at this time. No SW needs identified. Pt will need cardiac rehab as an outpt. SW met with pt at bedside confirming d/c plan. Pt will d/c home with his to transport via POV. All agreeable to plan. Assessment: Pt who is independent at baseline. Plan: Pt will d/c home with his to transport via POV. SW to follow. Argentina Kinney MSW
[2017-04-18] MEDS ORDERED: ASPI81TA3 PO (13:44)
[2017-04-18] MEDS ORDERED: CLOP75TA28 PO (13:44)
[2017-04-18] MEDS ORDERED: ATOR40TA69 PO (13:44)
[2017-04-18] MEDS ORDERED: NITR0.4T SL (13:44)
[2017-04-18] MEDS ORDERED: METO25TA99 PO (13:44)
--- NOTE | 2017-04-18 13:54 | PCM.DIMED ---
Solomon Parrish DO 04/18/17 1354: Discharge Instructions Date of Service Apr 18, 2017 Dates of Hospitalization Apr 16, 2017 at 14:47 Discharge Diagnosis Discharge Diagnosis Acute Non-ST segment elevation myocardial infarction Acute on chronic hypertension Chronic kidney disease stage II Presumed acute Thrombocytopenia Medication Instructions Additional med instructions We would like you to begin taking: Aspirin 81mg Daily Atrovastatin 40mg Daily Metoprolol succinate 12.5mg Daily Plavix 75mg Daily Nitroglycerine 0.4mg for chest pain every 5 minutes until pain resolves, do not take more than 3 before reporting to the ED Test Results Test Results Xray showed bilateral calcified pleural plaques Echo showed a normal ejection fraction. Coronary Catheterization showed 3 areas of occlusion which were subsequently stented. Diet Discharge Diet: Heart Healthy Activity Discharge Activity: No restrictions (10 lbs for 10 days ), Other Call your provider Call your provider for: Fever or Chills, Shortness of breath, Bleeding, Chest pain, Vomitting, Excessive diarrhea, Weakness (unilateral) Patient Instructions Patient Instructions Please continue at home movement as tolerated. Avoid heavy exertion for the next 2 weeks, however activities that require moderate elevations in heart rate are acceptable as you tolerate them. Continue to take medications as described above. Please return to the ED if symptoms return. Follow-up plan Please follow up with your primary care doctor within the next 1-2 weeks. Follow-up Provider: Diomedes Gasca MD Follow-up with PCP in: 1 week Edwin Pickett DO 04/18/17 1702: Discharge Instructions Attending's Statement Read and agree Solomon Parrish DO Apr 18, 2017 13:54 Edwin Pickett DO Apr 18, 2017 17:02
--- NOTE | 2017-04-18 14:14 | NUR ---
Social Work- Discharge Data: EMR reviewed. Pt is on day 2 of hospitalization for unstable angina per H&P. Pt to d/c today, orders are active. Pt will d/c home with his to transport via POV. Assessment: Pt who is independent at baseline. Plan: Pt will d/c home with his to transport via POV. No additional needs. Argentina Kinney MSW
--- NOTE | 2017-04-18 16:24 | PCM.DC.MED ---
Discharge Summary Date of Service Apr 18, 2017 Dates of Hospitalization Date of Hospital Admission Apr 16, 2017 at 14:47 Date of Discharge: Apr 18, 2017 Providers: Admitting Physician: Edwin Pickett DO Primary Care Physician: Diomedes Gasca MD Attending Physician: Edwin Pickett DO Diagnosis at Time of Discharge Diagnosis at Time of Discharge Acute Non-ST segment elevation myocardial infarction Acute on chronic hypertension Chronic kidney disease stage II Presumed acute Thrombocytopenia Consultations Cardiology: Dr. Robb Procedures XRay, CTs & MRIs X-RAY CHEST ONE VIEW, PORTABLE IMPRESSION: Bilateral calcified pleural plaques. Recommend correlation with asbestos exposure. Approved by: Dilia Granda M.D. on 04/16/2017 at 14:38 ECG 12 Lead Sinus rhythm Cardiac Echo Impression Echocardiogram Interpretation Summary Overall left ventricular systolic function is preserved with the ejection fraction visualy estimated to be 60-65% with probable mild hypokinesis in the proximal inferior and posterior segments but no other obvious focal wall motion abnormalities. Left ventricular wall thickness is mildly increased but diastolic parameters suggest normal left ventricular diastolic function and normal filling pressures. The right ventricle is normal in size and function. The right ventricular systolic pressure is estimated at 23 mmHg assuming a right atrial pressure of 3 mm Hg. Both atria are normal in size. There is no significant valvular heart disease. Reading Physician:12:32 PM Invasive Procedures INTERVENTIONAL CARDIAC CATHETERIZATION PROCEDURAL DETAILS: The reader and the coders are referred to the procedure log for complete details. Briefly, 6-Malagasy system. A Voda 3.5 guide was used. A Run-through wire was used to cross into the circumflex. This was directly stented with a 3.0 x 15 mm Xience drug-coated stent delivered at 16 atmospheres with excellent angiographic results. Next, LAD intervention. A Run-through wire was placed in the diagonal. The diagonal was pre-dilated with a 2.0 balloon and then stented with a 225 x15 mm stent at 14 atmospheres with good angiographic results. Next, a second wire was placed in the LAD and the mid LAD was stented with a 2.75 x 15 mm Xience drug-coated stent. A 2.0 balloon was then placed into the ostium of the diagonal and the stent balloon in the LAD was pulled back. A kissing balloon inflation was then done. Final angiographic results were excellent. In summary, successful two-vessel intervention. Wyatt Guthrie MD 04/17/17 1500 Other Diagnostics DIAGNOSTIC CARDIAC CATHETERIZATION IMPRESSION: Two-vessel disease involving mid left anterior descending (LAD), ostial first large diagonal branch, and mid circumflex. Haleigh Robb MD 04/17/17 1439 Brief History Taken from H&P completed by Dr. Perez: This is a 66 year old male with past medical history of pleural calcifications who presented with chest pain and SOB to the ED. he was having right-sided chest pain 10 out of 10 radiating to the scapula. He complained of diaphoresis and bilateral arm paresthesias. He noted having chest pain in the mornings while going to work. He denies a history of epigastric pain associated with food. He states he typically works out on an elliptical machine 30 minutes a few times a week with no associated chest pain. He denied having chest pain or dyspnea at rest . Pain is typically relieved by rest. He has a history of hyperlipidemia, short smoking history, and family history coronary artery disease. Cardiac catheterization was completed by Dr. Robb on 04/17/17 finding 2 vessel disease involving mid left anterior descending (LAD), ostial first large diagonal branch, and mid circumflex. The cardiac catheterization was followed by can conveyor feeder Dr. Guthrie who used balloon angioplasty and 3 drug-eluting stents were placed 2 in the LAD and 1 in the diagonal. Today the patient is feeling quite well. When examined he was eating breakfast lying in bed in comfortably without distress. He states he had a short episode of left-sided chest discomfort radiating to his thoracic spine. The pain is reproducible with palpation to the third intercostal space. He states this feels like musculoskeletal pain. He states he did not receive his metoprolol this morning due to hypotension. He feels slightly lightheaded when he is hypotensive. He does not currently feel this way. Hospital Course Mr. Monterroso is a 66 year old male with past medical history remarkable for pleural calcifications that presented to the ED with right-sided chest pain with associated shortness of breath. Acute Non-ST segment elevation myocardial infarction - Patient notes recurrent chest pain which appears to be prominent in the morning with some association with exertion and stress - Echocardiogram completed normal ejection fraction, other results as above - Metoprolol Succinate 12.5 mg twice a day - Continue baby aspirin daily -Continue Plavix - Continue Atorvastatin 40 mg - Continue nitroglycerin as needed for chest pain Acute on chronic hypertension - Metoprolol Succinate 12.5 mg twice a day Chronic kidney disease stage II - Creatinine of 1.01 with GFR of 79 - Likely secondary to chronic hypertension - Discontinue lisinopril Presumed acute Thrombocytopenia - Platelet counts continue to be low - Aspirin 81 mg daily - Continue Plavix Exam Vital Signs (Last) Date Time Temp Pulse Resp B/P Pulse Ox O2 Delivery O2 Flow Rate FiO2 04/18/17 12:19 36.9 67 15 101/59 98 Room Air Exam General: No acute distress, well-developed, well-nourished Head: Normocephalic, atraumatic. External ears without defect. Eyes: Pupils equal, round, and reactive to light and accommodation. Anicteric sclerae, moist conjunctivae. Neck: Normal range of motion, no lymphadenopathy noted Cardiovascular: Regular rate and rhythm with no murmurs, rubs, or gallops appreciated Pulmonary: Clear to auscultation bilaterally with no crackles, wheezes, or rhonchi. Normal respiratory effort with no use of accessory muscles. Abdomen: Bowel tones present. Soft, nontender, nondistended. Extremities: No clubbing, cyanosis, edema Skin: Normal temperature, turgor, and texture; no rash, ulcers, or subcutaneous nodules appreciated. Neurological: Cranial nerves grossly intact. Reflexes, coordination, and sensory function within normal limits. Normal muscle strength, tone, and bulk. Psychiatric: Normal mood and affect. Alert and oriented to person, place, and time Test 04/16/17 13:42 04/16/17 15:47 04/16/17 17:48 04/17/17 02:20 Hemoglobin A1c 5.6% (4.8-5.6) Magnesium Level 2.1mg/dL (1.6-2.6) Thyroid Stimulating Hormone (TSH) 2.920uIU/mL (0.450-4.500) Urine Color Straw (YELLOW) Urine Appearance Clear (CLEAR,HAZY) Urine pH 5.5 (5.0-8.0) Urine Specific Langston 1.005 (1.003-1.035) Urine Protein Negativemg/dL (NEG,TRACE) Urine Glucose (UA) Negativemg/dL (NEGATIVE) Urine Ketones Negativemg/dL (NEGATIVE) Urine Occult Blood Negative (NEGATIVE) Urine Nitrite Negative (NEGATIVE) Urine Bilirubin Negative (NEGATIVE) Urine Urobilinogen Normalmg/dL (NORMAL) Urine Leukocyte Esterase Negative (NEGATIVE) Urine RBC 0-2/hpf (0-2) Urine WBC 0-5/hpf (0-5) Urine Epithelial Cells None/hpf (NONE-MOD) Urine Crystals None seen (NONE SEEN) Urine Bacteria None/hpf (NONE-FEW) Urine Hyaline Casts None/lpf (NONE) Urine Granular Casts None seen (NONE SEEN) Urine Waxy Casts None seen (NONE SEEN) Urine Red Blood Cell Casts None seen (NONE SEEN) Urine White Blood Cell Casts None seen (NONE SEEN) Urine Mucus None seen (None Seen) Urine Trichomonas None seen (NONE SEEN) Urine Yeast None (NONE SEEN) Urinalysis Comment None Urine Culture Reflexed Not indicated Total Creatine Kinase 198U/L (21-232) Creatine Kinase MB 15.0ng/mL (0.0-10.4) Creatine Kinase MB % 7.6% (0.0-5.0) Triglycerides Level 220mg/dL (0-149) Cholesterol Level 226mg/dL (100-199) LDL Cholesterol, Calculated 144.000mg/dL (0-99) VLDL Cholesterol 44.000mg/dL HDL Cholesterol 38mg/dL (>39) Cholesterol/HDL Ratio 5.95 (0.0-4.4) Test 04/17/17 08:09 04/18/17 02:30 04/18/17 14:41 Troponin T 0.147ug/L (0.0-0.011) White Blood Count 7.7th/mm3 (3.8-10.1) Red Blood Count 4.42mil/mm3 (4.40-5.80) Hemoglobin 13.3g/dL (13.8-17.2) Hematocrit 39.2% (41.0-50.0) Mean Corpuscular Volume 88.7fL (81-100) Mean Corpuscular Hemoglobin 30.1pg (27.0-35.0) Mean Corpuscular Hemoglobin Concent 33.9% (32.0-37.0) Red Cell Distribution Width 13.4% (12.3-15.4) Platelet Count 113bil/L (150-400) Neutrophils (%) (Auto) 62.8% (40-74) Lymphocytes (%) (Auto) 23.1% (14-46) Monocytes (%) (Auto) 9.6% (4-12) Eosinophils (%) (Auto) 3.8% (0-5) Basophils (%) (Auto) 0.4% (0-3) Sodium Level 137mEq/L (134-144) Potassium Level 4.1mEq/L (3.5-5.2) Chloride Level 105mEq/L (97-108) Carbon Dioxide Level 21mmol/L (18-29) Blood Urea Nitrogen 21mg/dL (8-27) Creatinine 0.87mg/dL (0.76-1.27) Estimat Glomerular Filtration Rate 94mL/min (>59) Glucose Level 101mg/dL (60-99) Calcium Level 9.0mg/dL (8.5-10.1) Total Bilirubin 0.3mg/dL (0.0-1.2) Aspartate Amino Transf (AST/SGOT) 26U/L (0-50) Alanine Aminotransferase (ALT/SGPT) 21U/L (0-44) Alkaline Phosphatase 67U/L (25-160) Total Protein 5.6g/dL (6.4-8.4) Albumin 3.5g/dL (3.4-5.0) Activated Partial Thromboplast Time 24.1sec (22.8-33.0) Discharge Medications Discharge Medications Aspirin Chew (Aspirin Chew) 81 Mg Chew 81 MG PO DAILY Prescribed by: ISIS MACE DO Atorvastatin Calcium (Atorvastatin Calcium) 40 Mg Tablet 40 MG PO HS Prescribed by: ISIS MACE DO Clopidogrel (Clopidogrel) 75 Mg Tablet 75 MG PO DAILY Prescribed by: ISIS MACE DO Metoprolol Succinate ER (Metoprolol Succinate ER) 25 Mg Tab.er.24h 12.5 MG PO DAILY Prescribed by: ISIS MACE DO As needed Nitroglycerin SL (Nitrostat) 0.4 Mg Tab.subl 0.4 MG SL Q5MIN PRN PRN For Chest Pain IF SBP > 90 Prescribed by: ISIS MACE DO Additional med instructions We would like you to begin taking: Aspirin 81mg Daily Atrovastatin 40mg Daily Metoprolol succinate 12.5mg Daily Plavix 75mg Daily Nitroglycerine 0.4mg for chest pain every 5 minutes until pain resolves, do not take more than 3 before reporting to the ED Followup Plan Disposition: Home Follow-up plan Please follow up with your primary care doctor within the next 1-2 weeks. Discharge Diet: Heart Healthy Discharge Activity: No restrictions (10 lbs for 10 days ), Other Patient Instructions Please continue at home movement as tolerated. Avoid heavy exertion for the next 2 weeks, however activities that require moderate elevations in heart rate are acceptable as you tolerate them. Continue to take medications as described above. Please return to the ED if symptoms return. Follow-up Provider: Diomedes Gasca MD Follow-up with PCP in: 1 week Time spent Greater than 35 minutes spent on documentation and coordination of discharge. Attending Statement I have seen and evaluated patient at bedside, in addition to directly supervising care provided by resident physician Dr Mace. I agree with above recommendations. copies to: Diomedes Harris MD, Adam J DO Apr 18, 2017 16:24 Edwin Pickett DO Apr 18, 2017 17:12
--- NOTE | 2017-04-18 17:02 | NUR ---
discharge Pt took all belongings with him including glasses and hearing aids. PIVx2 removed prior to d/c. Spoke with Dr Lua who spoke with section hand helper and pt to stop taking lisinopril and just take metoprolol. Pt provided with information regarding all of his new d/c medications and his medical diagnoses. Pt aware to f/u with MDs at [facility] and to call MD if any issues or concerns. Pt offered opportunity to ask questions which were answered.
== END 2017-04-18 16:34 | disposition home or self-care (01) | DRG 247 ==
LOC: SED 13:17 → PCC 14:47 → OBSVTOIN 14:47 → PCC 04-17 15:30
PROVIDERS: ADMIT Family Medicine; ATTEND Family Medicine
PROC: 027236Z Dilation of Coronary Artery, Three Arteries with Three Drug-eluting Intraluminal Devices, Percutaneous Approach (ICD-10-PCS; principal; 2017-04-17)
PROC: 4A023N7 Measurement of Cardiac Sampling and Pressure, Left Heart, Percutaneous Approach (ICD-10-PCS; 2017-04-17)
PROC: B2111ZZ Fluoroscopy of Multiple Coronary Arteries using Low Osmolar Contrast (ICD-10-PCS; 2017-04-17)
DX: I21.4 Non-ST elevation (NSTEMI) myocardial infarction (principal); E78.5 Hyperlipidemia, unspecified; I12.9 Hypertensive chronic kidney disease with stage 1 through stage 4 chronic kidney disease, or unspecified chronic kidney disease; N18.2 Chronic kidney disease, stage 2 (mild); D69.6 Thrombocytopenia, unspecified; Z82.49 Family history of ischemic heart disease and other diseases of the circulatory system; I25.10 Atherosclerotic heart disease of native coronary artery without angina pectoris

== ENCOUNTER 2017-04-28 15:26 | Observation (INO) | payer OTHER ==
[2017-04-28] VITALS (8 sets, daily range): BP systolic 116–149; BP diastolic 59–81; PULSE 51–87; RESP 12–18; O2SAT 97–100
[~2017-04-28] VITALS: Ht 177.8 cm; Wt 72.7 kg
[~2017-04-28 15:26] MED LIST: ASPI81TA3 PO; ATOR40TA69 PO; CLOP75TA28 PO; METO-386 PO; NITR0.4T SL
[2017-04-28] MEDS ORDERED: 0.9% Sodium Chloride 1,000 ML IV ONE (16:03)
--- NOTE | 2017-04-28 16:13 | ED.REPORT ---
HPI-Neurologic Deficit Date of Service Apr 28, 2017 ED Provider: Hussein Morris PA-C Armando is a 66-year-old male with a recent history of cardiac stent placement April 17 presents emergency Department with a chief complaint of left-sided numbness. Patient reports pins and needle sensation originating at his left jaw progressing to his face, shoulder and left arm since approximately 0900 this morning, approximately 7 hours ago. Associated with tightness in his chest , radiating to his shoulder blades and left shoulder, global headache. Denies fever, chills, shortness of breath, cough, wheeze, abdominal pain, nausea, vomiting, difficulty walking, weakness in his limbs. Taking Plavix. Patient contacted the on-call supervisory clerk and was advised to present to the emergency department. Patient reports a history of similar pain symptoms, however numbness is new. 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 Chief Complaint: Neuro Symptoms/ Deficits Nursing Notes Reviewed: Yes Allergies: Coded Allergies: scallops (Verified Allergy, Severe, vomiting, 04/16/17) Scheduled Amlodipine (Amlodipine) 5 Mg Tablet 5 MG PO QAM Aspirin Chew (Aspirin Chew) 81 Mg Chew 81 MG PO DAILY Atorvastatin Calcium (Atorvastatin Calcium) 40 Mg Tablet 40 MG PO HS Cholecalciferol (Vitamin D3) (Vitamin D3) 2,000 Unit Tablet 2,000 UNIT PO QAM Clopidogrel (Clopidogrel) 75 Mg Tablet 75 MG PO DAILY Fish Oil/Borage/Flax/Om3,6,9#1 ([place] 3-6-9 1,200 mg Softgel) 1,200 Mg Capsule 1 ,200 MG PO QAM Glucosamine/MSM/Chondroitin A (Glucosamine Chondroit MSM Tab) 1 Each Tablet 1 EACH PO QAM Metoprolol Succinate ER (Metoprolol Succinate ER) 25 Mg Tab.er.24h 12.5 MG PO DAILY Multivit with Calcium,Iron,Min (Multivitamins Z-[id number]) 1 Each Tablet 1 EACH PO QAM Prasterone (Dhea) (Dhea 25) 25 Mg Capsule 25 MG PO QAM Scheduled PRN Acetaminophen (Acetaminophen) 325 Mg Tablet 650 MG PO Q6H PRN PRN For Pain Nitroglycerin SL (Nitrostat) 0.4 Mg Tab.subl 0.4 MG SL Q5MIN PRN PRN For Chest Pain IF SBP > 90 General Time Seen by Provider: 15:46 Chief Complaint Other (left-sided numbness) Sudden in Onset?: No Risk Factors NIH Stroke Scale Level of Consciousness: Alert and responsive (0) Ask Month & Age: Both questions right (0) Open/Close Eyes/Hand Test Clerk: Performs both tasks (0) Horizontal EO Movements: None (0) Visual Lua: No visual loss (0) Facial Palsy: Normal symmetry (0) Right Arm Motor Drift (10s): No drift 10 sec (0) Left Arm Motor Drift (10s): No drift 10 sec (0) Right Leg Motor Drift (5s): No drift 5 sec (0) Left Leg Motor Drift (5s): No drift 5 sec (0) Limb Ataxia FNF/Heel-Ruffin: No ataxia (0) Sensation (Arms/Legs/Face): Pinprick less sharp (1) Language Aphasia: No aphasia, normal (0) Dysarthria: No dysarthria, normal (0) Extinction/Inattention: No exctinct/inattent (0) Past Medical History Past Medical History Pleural calcifications Hyperlipidemia 3 stent placement Past Surgical History Reports: Tonsillectomy Family History He reports that both his younger and older bother have a history of cardiac related medical issues that have led to multiple stents. His older bother is a smoker, and the younger brother is an alcoholic. Smoking History Never Smoker Social History Alcohol Use: "Social" Drug Use: Denies drug use Other Social History: Good social support Ambulatory Status Independent Review of Systems General: Denies fever, chills, malaise. HEENT: Denies congestion, headache, sore throat. Respiratory: Denies dyspnea, cough, shortness of breath, wheezing. Cardiovascular: Admits chest pain, denies palpitations Gastrointestinal: Denies vomiting, diarrhea, abdominal pain. Otherwise as noted in HPI. Physical Exam General: Well appearing, well developed, well nourished, no acute distress. Head: Atraumatic, normocephalic. Eyes: No scleral icterus or injection. No discharge. Vision grossly intact. ENT: Voice clear, hearing grossly intact. Respiratory: Regular rate and rhythm. Breath sounds present, clear to auscultation and equal bilaterally. No respiratory distress. No increased work of breathing, speaks in complete sentences. Cardiovascular: Regular rate and rhythm, without murmur, gallop or rub. No pedal edema. Gastrointestinal: Abdomen flat and non-tender without guarding or rebound. Bowel sounds normoactive. Skin: Warm and dry. Neurological: Reduced sensation to sharp touch over left cheek, left hand. Normal gait, toe walk, heel walk, Romberg. Normal finger-nose, heel-ruffin, rapid hand. Negative pronator drift. Negative leg drift. Sensation grossly intact in extremities. Cranial nerves: Vision grossly intact, PERRL, EOMI. Facial motion symmetrical, sensation to sharp touch reduced over the left cheek, jaw. Intact over forehead. voice clear and fluent, no drooling/pooling of saliva, uvula rises midline. Psychological: Alert and oriented. Speech appropriate, linear and logical. Behavior appropriate. Initial Vital Signs Vital Signs (First) Date Time Temp Pulse Resp B/P Pulse Ox O2 Delivery O2 Flow Rate FiO2 04/28/17 15:30 37.1 57 18 149/81 99 Room Air Elevated blood pressure Interpretation & Diagnostics Lab Results Interpretation Result Diagram: 04/28/17 1630 04/28/17 1630 Test 04/28/17 16:30 04/28/17 16:38 White Blood Count 7.2th/mm3 (3.8-10.1) Red Blood Count 4.67mil/mm3 (4.40-5.80) Hemoglobin 14.0g/dL (13.8-17.2) Hematocrit 41.4% (41.0-50.0) Mean Corpuscular Volume 88.7fL (81-100) Mean Corpuscular Hemoglobin 30.0pg (27.0-35.0) Mean Corpuscular Hemoglobin Concent 33.8% (32.0-37.0) Red Cell Distribution Width 13.5% (12.3-15.4) Platelet Count 148bil/L (150-400) Neutrophils (%) (Auto) 67.0% (40-74) Lymphocytes (%) (Auto) 16.6% (14-46) Monocytes (%) (Auto) 10.6% (4-12) Eosinophils (%) (Auto) 5.3% (0-5) Basophils (%) (Auto) 0.4% (0-3) Sodium Level 136mEq/L (134-144) Potassium Level 4.3mEq/L (3.5-5.2) Chloride Level 98mEq/L (97-108) Carbon Dioxide Level 24mmol/L (18-29) Blood Urea Nitrogen 20mg/dL (8-27) Creatinine 0.91mg/dL (0.76-1.27) Estimat Glomerular Filtration Rate 89mL/min (>59) Glucose Level 99mg/dL (60-99) Calcium Level 9.3mg/dL (8.5-10.1) Total Bilirubin 0.4mg/dL (0.0-1.2) Aspartate Amino Transf (AST/SGOT) 24U/L (0-50) Alanine Aminotransferase (ALT/SGPT) 33U/L (0-44) Alkaline Phosphatase 86U/L (25-160) Troponin T < 0.010ug/L (0.0-0.011) Total Protein 7.1g/dL (6.4-8.4) Albumin 4.4g/dL (3.4-5.0) Hold Urine Received (Received) Re-Eval/Medical Decision Med Decision/Clinical Course Details a 66-year-old male with recent history of stent placement during emergency Department the chief complaint of left-sided numbness first noticed approximate 7 hours ago. This is outside the window for TPA. Also complains of chest pressure. Physical examination reveals reduced sensation to sharp touch over the left hand and face. Otherwise benign with vital signs normal except for mildly elevated blood pressure. Cardiac workup was initiated as well as CT brain without contrast after consultation with Dr. Tucker. Concern for ACS as well as TIA/CVA . Care is transferred to Dr. Tucker. Consultation : Referral / Consult Name: DRU PURCELL DO Consulted With: Hospitalist Drapery Installer: Accepts admit Discharge & Departure Shift Change Sign-Out Patient Care Transferred: Yes (Dr. Tucker) Discussed Complaint(s): Yes Laboratory Evaluation: Ordered, not yet done Imaging Studies: Ordered, not yet done Impression: Primary Impression: CVA (cerebral vascular accident) CVA mechanism: unspecified Qualified Code: I63.9 - Cerebral infarction, unspecified Additional Impression: Chest pain Chest pain type: unspecified Qualified Code: R07.9 - Chest pain, unspecified Disposition: ADMITTED TO HOSPITAL Referrals: Diomedes Gasca MD (PCP) Attending Statement I have seen and examined the patient. I have reviewed the chart and agree with the documentation as recorded by the Midlevel Provider, including assessment, treatment plan, and disposition. Findings from my exam are included in documentation above. Mr. Morris asked me to assume care of this patient when hospitalization seemed imminent. I have interviewed the patient myself and examined him carefully myself. I have re-demonstrated the decreased sensation to pinprick in the left face which to me given the clinical history could easily be apprenticeship training representative of acute right hemisphere CVA. For this reason I believe hospitalization is appropriate. And I agree with the assessment above. Hussein Morris PA-C Apr 28, 2017 16:13 Vinod Tucker MD Apr 28, 2017 18:22
[2017-04-28 16:33] LABS: BASOPHILS % (AUTO) 0.4 % (0-3); EOSINOPHILS % (AUTO) 5.3 % (0-5); MONOCYTES % (AUTO) 10.6 % (4-12); Mean Corpuscular Volume 88.7 fL (81-100); Platelet Count 148 bil/L (150-400)
[2017-04-28] MEDS ORDERED: AMLO5TAB2 PO (16:52)
[2017-04-28 17:02] LABS: TROPONIN T < 0.010 ug/L (0.0-0.011)
--- NOTE | 2017-04-28 17:09 | DRSVH ---
PROCEDURE: CT BRAIN WITHOUT CONTRAST ([id number]) INDICATIONS: left facial and arm numbness TECHNIQUE: Noncontrast 4.5 mm thick angled axial sections acquired from the foramen magnum to the vertex, with c oronal reformats. COMPARISON: None. FINDINGS: Image quality: Excellent. CSF spaces: Basal cisterns are patent. No extra-axial fluid collections. Ventricles are normal in size and shape. Brain: No intracranial hemorrhage, mass, or mass effect. Viera-white matter interface is preserved. Skull and face: Calvarium and visualized facial bones are intact, without suspicious lesions. Sinuses: Visualized sinuses and mastoids are clear. IMPRESSION: 1. No acute intracranial abnormality. Dictated by: Saeed Rao M.D. on 04/28/2017 at 17:06 Approved by: Saeed Rao M.D. on 04/28/2017 at 17:07
[2017-04-28] MEDS ORDERED: FISH12002 PO (17:16)
[2017-04-28] MEDS ORDERED: PRAS25CA7 PO (17:16)
[2017-04-28] MEDS ORDERED: MULT-528 PO (17:16)
[2017-04-28] MEDS ORDERED: GLUC-180 PO (17:16)
[2017-04-28] MEDS ORDERED: CHOL200025 PO (17:16)
[2017-04-28] MEDS ORDERED: ACET325T51 PO (17:16)
[2017-04-28] MEDS ORDERED: Alum-Mag Hydrox-Simeth 30 mL Suspension PO PRN ×2 (17:45→18:10)
[2017-04-28] MEDS ORDERED: Ondansetron 2 mg/mL 2 mL Inj IVPUSH PRN (17:45)
[2017-04-28] MEDS ORDERED: Polyethylene Glycol (PEG) 17 Gm Powder PO PRN (18:10)
--- NOTE | 2017-04-28 18:24 | DRSVH ---
PROCEDURE: X-RAY CHEST ONE VIEW, PORTABLE ([id number]) INDICATIONS: chest pain TECHNIQUE: One view of the chest was acquired. COMPARISON: [facility], CT, CT CHEST W CON, 04/21/2017, 12:55. [facility], C R, XR CHEST 1VW (PORTABLE), 04/16/2017, 14:13. [facility], CR, XR CHEST 1VW (PORTABLE), , 6:53. FINDINGS: Surgical changes and devices: None. Lungs and pleura: No pleural effusions or pneumothorax. Multiple bilateral calcified pleural plaque s are redemonstrated. No acute consolidation. Mediastinum: Mediastinal contours appear normal. Heart size is normal. Bones and chest wall: No suspicious bony lesions. Overlying soft tissues appear unremarkable. IMPRESSION: 1. Calcified pleural plaques redemonstrated consistent with sequelae of prior asbestos exposure. Dictated by: Saeed Rao M.D. on 04/28/2017 at 18:21 Approved by: Saeed Rao M.D. on 04/28/2017 at 18:23
[2017-04-28 18:38] LABS: APPEARANCE,URINE CLEAR (CLEAR,HAZY); COLOR,URINE STRAW (YELLOW); OCCULT BLOOD,URINE NEGATIVE (NEGATIVE); UROBILINOGEN,URINE NORMAL (NORMAL)
[2017-04-28] MEDS: MeTOProlol XL 25 mg ER24 Tablet PO SCH (19:00)
--- NOTE | 2017-04-28 19:07 | PCM.HPMED ---
Subjective Date of Service Apr 28, 2017 Primary Provider: Admitting Physician: Claudia Crowder MD Primary Care Physician: Diomedes Gasca MD Attending Physician: Claudia Crowder MD Chief Complaint: Possible TIA History of Present Illness: Mr. Monterroso is a 66-year-old male with recent history of cardiac stent placement on April 17 discharged with repeat hospitalization the next day for ongoing chest pain which was determined to be musculoskeletal in nature. Patient was discharged April 21. He saw his doctor on the and was prescribed amlodipine. He states through the weekend he did very well though still had some residual left shoulder blade, left chest and left arm pain which she rated at 2 out of 10. This pain was exacerbated while laying on his left side. No significant events reported overnight. Last night he woke up a number of times throughout the evening with shallow breathing, he was able to take his blood pressure which he found to be slightly hypotensive 91/52 and pulse rate 53 but state any specific pain symptoms. But he did have a new onset of left-sided facial tingling as well as extremity tingling. He states that his tingling was primarily on the left side of his face starting on the left side of his chin and radiated up into his face just below his orbit and down into his neck. He also dates that he has a recent onset of lower extremity calf swelling and "feet turning blue". In the emergency department CT noncontrast showed no acute changes, CXR showed redemonstrated pleural plaques also likely secondary to asbestos exposure. CBC and CMP unremarkable. EKG showed sinus rhythm with a rate in the 50s. NIH stroke scale was negative except for a reported left facial numbness to pinprick sensation. This was not redemonstrated later during physical exam. Patient admitted for hospital CVA with MRI stroke protocol scheduled for the morning. Review of Systems: A comprehensive review of systems was conducted with the patient and found to be negative except as above in the history of present illness. Allergies Coded Allergies: scallops (Verified Allergy, Severe, vomiting, 04/16/17) Home Medications Amlodipine (Amlodipine) 5 Mg Tablet 5 MG PO QAM Aspirin Chew (Aspirin Chew) 81 Mg Chew 81 MG PO DAILY Atorvastatin Calcium (Atorvastatin Calcium) 40 Mg Tablet 40 MG PO HS Cholecalciferol (Vitamin D3) (Vitamin D3) 2,000 Unit Tablet 2,000 UNIT PO QAM Clopidogrel (Clopidogrel) 75 Mg Tablet 75 MG PO DAILY Fish Oil/Borage/Flax/Om3,6,9#1 ([place] 3-6-9 1,200 mg Softgel) 1,200 Mg Capsule 1 ,200 MG PO QAM Glucosamine/MSM/Chondroitin A (Glucosamine Chondroit MSM Tab) 1 Each Tablet 1 EACH PO QAM Metoprolol Succinate ER (Metoprolol Succinate ER) 25 Mg Tab.er.24h 12.5 MG PO DAILY Multivit with Calcium,Iron,Min (Multivitamins M-Okahlav-Maiz) 1 Each Tablet 1 EACH PO QAM Prasterone (Dhea) (Dhea 25) 25 Mg Capsule 25 MG PO QAM PMH Pleural calcifications Hyperlipidemia 3 stent placement Surgical History Reports: Tonsillectomy Family History 2 brothers with early coronary artery disease Social History Hx Alcohol Use: Yes (OCCASIONAL) Hx Substance Use: No Hx Tobacco Use: No Smoking Status: Never Smoker Living Arrangement: with Family Exam Vital Signs Vital Sign - Last Date Time Temp Pulse Resp B/P Pulse Ox O2 Delivery O2 Flow Rate FiO2 04/28/17 17:41 37.1 57 18 116/62 100 Room Air Exam General: No acute distress, well-developed, well-nourished, appropriately interactive HEENT: Normocephalic, atraumatic. Pupils equal, round, and reactive to light and accommodation, left eye scleral injection. Anicteric sclerae, moist conjunctivae, and no lid lag. Oropharynx free of erythema and cobble stoning with moist mucosa. Neck: Supple with full range of motion. No jugular venous distension. Cardiovascular: Regular rate and rhythm with no murmurs Pulmonary: Clear to auscultation bilaterally with no crackles, wheezes, or rhonchi. Normal respiratory effort with no use of accessory muscles. Abdomen: Bowel tones present. Soft, nontender, nondistended. Extremities: No clubbing, cyanosis, edema, or lymphadenopathy appreciated. Skin: Normal temperature, turgor, and texture Neurological: Cranial nerves grossly intact. Psychiatric: Normal mood and affect. Alert and oriented to person, place, and time. Lab and Diagnostics Result Diagram: 04/28/17 1630 04/28/17 1630 X-Rays, CTs and MRIs . X-RAY CHEST ONE VIEW, PORTABLE IMPRESSION: 1. Calcified pleural plaques redemonstrated consistent with sequelae of prior asbestos exposure. Dictated by: Saeed Rao M.D. on 04/28/2017 CT BRAIN WITHOUT CONTRAST IMPRESSION: 1. No acute intracranial abnormality. Dictated by: Saeed Rao M.D. on 04/28/2017 12-lead ECG Sinus rhythm in the 50s Additional Diagnostics: NIH stroke scale Level of Consciousness: Alert and responsive (0) Ask Month & Age: Both questions right (0) Open/Close Eyes/Hand Harp Regulator: Performs both tasks (0) Horizontal EO Movements: None (0) Visual Lua: No visual loss (0) Facial Palsy: Normal symmetry (0) Right Arm Motor Drift (10s): No drift 10 sec (0) Left Arm Motor Drift (10s): No drift 10 sec (0) Right Leg Motor Drift (5s): No drift 5 sec (0) Left Leg Motor Drift (5s): No drift 5 sec (0) Limb Ataxia FNF/Heel-Ruffin: No ataxia (0) Sensation (Arms/Legs/Face): Pinprick less sharp (1) Language Aphasia: No aphasia, normal (0) Dysarthria: No dysarthria, normal (0) Extinction/Inattention: No exctinct/inattent (0) Assessment & Plan Mr. Monterroso is a 66-year-old male with recent history of multiple cardiac stent placement on April 17 admitted for possible TIA. Possible TIA, present on admission. Ongoing Current symptoms possibly secondary to amlodipine use -NIH stroke scale on the left side facial numbness and tingling no obvious deficits. -CT negative -MR stroke protocol ordered for 04/29/2017 -Continue aspirin and Plavix Coronary artery disease status post stent placement 3 -Continue aspirin and Plavix as above -Continue metoprolol -Held amlodipine Hyperlipidemia present on admission. Ongoing, present on admission. Ongoing -Continue statin CODE STATUS: Patient is full code Pain Evaluation: Adequate Pain Control GI Prophylaxis: H2 shavon VTE Prophylaxis: Sub-Q Heparin (Unfractionated) Resuscitation Status: CPR: Attempt Resuscitation DRU PURCELL DO Apr 28, 2017 19:06
[2017-04-28] MEDS: Heparin 5,000 Unit/mL Inj SUBQ SCH (19:56)
[2017-04-29 01:04] VITALS: BP 113/63; PULSE 65; RESP 18; O2SAT 96
[2017-04-29] MEDS: Heparin 5,000 Unit/mL Inj SUBQ SCH ×2 (03:37→11:30)
[2017-04-29 06:11] VITALS: BP 103/61; PULSE 55; RESP 16; O2SAT 97
[2017-04-29 07:19] LABS: BASOPHILS % (AUTO) 0.5 % (0-3); EOSINOPHILS % (AUTO) 4.8 % (0-5); MONOCYTES % (AUTO) 9.1 % (4-12); Mean Corpuscular Hemoglobin 29.8 pg (27.0-35.0); Mean Corpuscular Volume 88.6 fL (81-100); NEUTROPHILS % (AUTO) 65.5 % (40-74); Platelet Count 111 bil/L (150-400)
[2017-04-29 07:50] LABS: Magnesium 2.2 mg/dL (1.6-2.6)
[2017-04-29] MEDS: MeTOProlol XL 25 mg ER24 Tablet PO SCH (08:30)
[2017-04-29 08:33] VITALS: BP 135/70; PULSE 58; RESP 16; O2SAT 97
[2017-04-29 09:07] VITALS: PULSE 54
--- NOTE | 2017-04-29 11:46 | DRSVH ---
PROCEDURE: MRI STROKE PROTOCOL ([id number]) Pre- and post-contrast brain MRI, non-contrast brain MR angiogram, pre- and postcontrast neck MR nikky ogram INDICATIONS: L side numbness and tingling TECHNIQUE: Brain: Noncontrast axial T1 spin echo, axial T2 fast spin echo, sagittal and axial FLAIR, coronal T2 fast spin echo, axial gradient echo, axial diffusion and ADC through the brain. After the administr ation of contrast, axial 3D VIBE of the cranial vasculature and brain. Brain MRA: Non-contrast 3-D time of flight MR angiogram, with multiple ndkotvh-yatqzuvmg-wuhujlzmgp (MIP) reformats performed. Neck MRA: Axial and sagittal TruFISP through the neck. Coronal dynamic MR angiogram during administ ration of contrast in the arterial and venous phases, with 3-dimenstional vaqxgmb-bsuzsnfaj-iyixuofpp n (MIP) reformats constructed from subtraction images. COMPARISON: CT brain 04/28/2017 FINDINGS: Image quality: Excellent. BRAIN: CSF spaces: Ventricles are normal in size and shape. Basal cisterns are patent. No extra-axial flu id collections. Brain: No intracranial bleeds or mass effects. Viera-white matter interface is normal. Diffusion we ighted images show no acute ischemic insults. Brainstem appears normal. Normal intravascular flow v oids are present. No abnormal intracranial enhancement. Skull and face: Calvarial marrow signal is normal. Orbits appear normal. Sinuses: Sinuses and mastoids are clear. BRAIN MR ANGIOGRAM: Anterior circulation: Intracranial internal carotid arteries are normal in size and enhancement. Th e flow within the paired anterior cerebral arteries is normal and symmetric. The flow within the mid dle cerebral arteries is normal and symmetric. The anterior communicating artery is seen. No stenos es, occlusions, or aneurysms. Posterior circulation: The visualized portions of the vertebral arteries demonstrate normal caliber, and join to form a normal appearing basilar artery. The flow within the posterior cerebral arteries is normal and symmetric. No stenoses, occlusions, or aneurysms. NECK MR ANGIOGRAM: Carotids: Great vessels demonstrate a conventional anatomy as they arise from the aortic arch. The origins of the common carotid arteries appear patent. The calibers and courses of both common caroti d arteries are normal. The bifurcation regions appear normal bilaterally. The internal carotid ulises yari demonstrate normal course and caliber. Posterior circulation: The origins of the vertebral arteries appear stenotic, left greater than righ t. More superior portions of both vertebral arteries demonstrate normal course and caliber, and join to form a normal appearing basilar artery. Miscellaneous: Subclavian arteries appear patent. Pre-contrast images through the neck show no soft tissue abnormalities. IMPRESSION: BRAIN MRI: 1. No acute or chronic ischemic infarct. No intracranial hemorrhage. No space-occupying mass lesion. No abnormal enhancement. BRAIN MR ANGIOGRAM: 1. Normal intracranial vasculature. NECK MR ANGIOGRAM: 1. Normal cervical carotid vasculature. 2. Bilateral stenosis at the origin of the vertebral arteries. The estimate of stenosis included in the report of the imaging study was calculated using the NASCET method Dictated by: Torito Velazquez M.D. on 04/29/2017 at 11:34 Approved by: Torito Velazquez M.D. on 04/29/2017 at 11:44
--- NOTE | 2017-04-29 17:27 | PCM.DIMED ---
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 Harris in the near future Claudia Crowder MD Apr 29, 2017 17:27
[2017-04-29] MEDS ORDERED: METO25TA3 PO (17:29)
--- NOTE | 2017-04-29 17:37 | PCM.DC.MED ---
Discharge Summary Date of Service Apr 29, 2017 Dates of Hospitalization Date of Hospital Admission Apr 28, 2017 at 18:21 Date of Discharge: Apr 29, 2017 Providers: Admitting Physician: Claudia Crowder MD Primary Care Physician: Diomedes Gasca MD Attending Physician: Claudia Crowder MD Diagnosis at Time of Discharge Diagnosis at Time of Discharge Bradycardia and hypotension Possible TIA, Coronary artery disease status post stent placement 3 Hyperlipidemia Procedures XRay, CTs & MRIs . X-RAY CHEST ONE VIEW, PORTABLE IMPRESSION: 1. Calcified pleural plaques redemonstrated consistent with sequelae of prior asbestos exposure. Dictated by: Saeed Rao M.D. on 04/28/2017 CT BRAIN WITHOUT CONTRAST IMPRESSION: 1. No acute intracranial abnormality. Dictated by: Saeed Rao M.D. on 04/28/2017 Patient Name: HILARIO WALSH MR#: [id number] Location: [facility] [place] Ordering Phys: BINHDRU Date of Service: 04/29/17 0500 PROCEDURE: MRI STROKE PROTOCOL ([id number]) INDICATIONS: L side numbness and tingling FINDINGS: Image quality: Excellent. BRAIN: CSF spaces: Ventricles are normal in size and shape. Basal cisterns are patent. No extra-axial fluid collections. Brain: No intracranial bleeds or mass effects. Viera-white matter interface is normal. Diffusion weighted images show no acute ischemic insults. Brainstem appears normal. Normal intravascular flow voids are present. No abnormal intracranial enhancement. Skull and face: Calvarial marrow signal is normal. Orbits appear normal. Sinuses: Sinuses and mastoids are clear. BRAIN MR ANGIOGRAM: Anterior circulation: Intracranial internal carotid arteries are normal in size and enhancement. The flow within the paired anterior cerebral arteries is normal and symmetric. The flow within the middle cerebral arteries is normal and symmetric. The anterior communicating artery is seen. No stenoses, occlusions, or aneurysms. Posterior circulation: The visualized portions of the vertebral arteries demonstrate normal caliber, and join to form a normal appearing basilar artery. The flow within the posterior cerebral arteries is normal and symmetric. No stenoses, occlusions, or aneurysms. NECK MR ANGIOGRAM: Carotids: Great vessels demonstrate a conventional anatomy as they arise from the aortic arch. The origins of the common carotid arteries appear patent. The calibers and courses of both common carotid arteries are normal. The bifurcation regions appear normal bilaterally. The internal carotid arteries demonstrate normal course and caliber. Posterior circulation: The origins of the vertebral arteries appear stenotic, left greater than right. More superior portions of both vertebral arteries demonstrate normal course and caliber, and join to form a normal appearing basilar artery. Miscellaneous: Subclavian arteries appear patent. Pre-contrast images through the neck show no soft tissue abnormalities. IMPRESSION: BRAIN MRI: 1. No acute or chronic ischemic infarct. No intracranial hemorrhage. No space- occupying mass lesion. No abnormal enhancement. BRAIN MR ANGIOGRAM: 1. Normal intracranial vasculature. NECK MR ANGIOGRAM: 1. Normal cervical carotid vasculature. 2. Bilateral stenosis at the origin of the vertebral arteries. The estimate of stenosis included in the report of the imaging study was calculated using the NASCET method Dictated by: Torito Velazquez M.D. on 04/29/2017 at 11:34 ECG 12 Lead Sinus rhythm in the 50s Other Diagnostics NIH stroke scale Level of Consciousness: Alert and responsive (0) Ask Month & Age: Both questions right (0) Open/Close Eyes/Hand Rn Hemo Dialysis: Performs both tasks (0) Horizontal EO Movements: None (0) Visual Lua: No visual loss (0) Facial Palsy: Normal symmetry (0) Right Arm Motor Drift (10s): No drift 10 sec (0) Left Arm Motor Drift (10s): No drift 10 sec (0) Right Leg Motor Drift (5s): No drift 5 sec (0) Left Leg Motor Drift (5s): No drift 5 sec (0) Limb Ataxia FNF/Heel-Ruffin: No ataxia (0) Sensation (Arms/Legs/Face): Pinprick less sharp (1) Language Aphasia: No aphasia, normal (0) Dysarthria: No dysarthria, normal (0) Extinction/Inattention: No exctinct/inattent (0) Brief History Mr. Walsh is a 66-year-old male with recent history of cardiac stent placement on April 17 discharged with repeat hospitalization the next day for ongoing chest pain which was determined to be musculoskeletal in nature. Patient was discharged April 21. He saw his doctor on the and was prescribed amlodipine. He states through the weekend he did very well though still had some residual left shoulder blade, left chest and left arm pain which she rated at 2 out of 10. This pain was exacerbated while laying on his left side. No significant events reported overnight. Last night he woke up a number of times throughout the evening with shallow breathing, he was able to take his blood pressure which he found to be slightly hypotensive 91/52 and pulse rate 53 but state any specific pain symptoms. But he did have a new onset of left-sided facial tingling as well as extremity tingling. He states that his tingling was primarily on the left side of his face starting on the left side of his chin and radiated up into his face just below his orbit and down into his neck. He also dates that he has a recent onset of lower extremity calf swelling and "feet turning blue". In the emergency department CT noncontrast showed no acute changes, CXR showed redemonstrated pleural plaques also likely secondary to asbestos exposure. CBC and CMP unremarkable. EKG showed sinus rhythm with a rate in the 50s. NIH stroke scale was negative except for a reported left facial numbness to pinprick sensation. This was not redemonstrated later during physical exam. Patient admitted for hospital CVA with MRI stroke protocol scheduled for the morning. Hospital Course Mr. Walsh is a 66-year-old male with recent history of multiple cardiac stent placement on April 17 admitted for possible TIA. Bradycardia and hypotension, poa, improving -probably the hypotension and bradycardia noted in hospital causing symptoms. -discharge patient home with follow up with Cardiology this -will discontinue the Amlodipine and reduce the Toprol XL from 12.5 to 6.125 daily Possible TIA, present on admission, resolved Current symptoms possibly secondary to amlodipine use -NIH stroke scale on the left side facial numbness and tingling no obvious deficits. -CT negative -MR stroke protocol negative -Continue aspirin, statin, Statin Coronary artery disease status post stent placement 3 -Continue aspirin and Plavix and statin -Continue metoprolol but reduce dose as above -discontinue amlodipine -patient cardiac troponin normal this visit Hyperlipidemia present on admission. Ongoing, present on admission. Ongoing -Continue statin CODE STATUS: Patient is full code Exam Vital Signs (Last) Date Time Temp Pulse Resp B/P Pulse Ox O2 Delivery O2 Flow Rate FiO2 04/29/17 09:07 54 04/29/17 08:33 36.7 16 135/70 97 Room Air Exam Eyes juliette, eom intact CV; reg no murmur Resp; clear GI; soft non acute benign Neuro; 2-12 intact no motor or sensory defects Test 04/28/17 16:30 04/28/17 16:38 04/29/17 06:45 Troponin T < 0.010ug/L (0.0-0.011) Urine Color Straw (YELLOW) Urine Appearance Clear (CLEAR,HAZY) Urine pH 6.0 (5.0-8.0) Urine Specific [place] <1.005 (1.003-1.035) Urine Protein Negativemg/dL (NEG,TRACE) Urine Glucose (UA) Negativemg/dL (NEGATIVE) Urine Ketones Negativemg/dL (NEGATIVE) Urine Occult Blood Negative (NEGATIVE) Urine Nitrite Negative (NEGATIVE) Urine Bilirubin Negative (NEGATIVE) Urine Urobilinogen Normalmg/dL (NORMAL) Urine Leukocyte Esterase Negative (NEGATIVE) Urine RBC 0-2/hpf (0-2) Urine WBC 0-5/hpf (0-5) Urine Epithelial Cells Occasional/hpf (NONE-MOD) Urine Crystals None seen (NONE SEEN) Urine Bacteria None/hpf (NONE-FEW) Urine Hyaline Casts None/lpf (NONE) Urine Granular Casts None seen (NONE SEEN) Urine Waxy Casts None seen (NONE SEEN) Urine Red Blood Cell Casts None seen (NONE SEEN) Urine White Blood Cell Casts None seen (NONE SEEN) Urine Mucus None seen (None Seen) Urine Trichomonas None seen (NONE SEEN) Urine Yeast None (NONE SEEN) Urinalysis Comment None Urine Culture Reflexed Not indicated Hold Urine Received (Received) White Blood Count 6.5th/mm3 (3.8-10.1) Red Blood Count 4.40mil/mm3 (4.40-5.80) Hemoglobin 13.1g/dL (13.8-17.2) Hematocrit 39.0% (41.0-50.0) Mean Corpuscular Volume 88.6fL (81-100) Mean Corpuscular Hemoglobin 29.8pg (27.0-35.0) Mean Corpuscular Hemoglobin Concent 33.6% (32.0-37.0) Red Cell Distribution Width 13.3% (12.3-15.4) Platelet Count 111bil/L (150-400) Neutrophils (%) (Auto) 65.5% (40-74) Lymphocytes (%) (Auto) 19.9% (14-46) Monocytes (%) (Auto) 9.1% (4-12) Eosinophils (%) (Auto) 4.8% (0-5) Basophils (%) (Auto) 0.5% (0-3) Sodium Level 139mEq/L (134-144) Potassium Level 4.1mEq/L (3.5-5.2) Chloride Level 104mEq/L (97-108) Carbon Dioxide Level 21mmol/L (18-29) Blood Urea Nitrogen 21mg/dL (8-27) Creatinine 0.85mg/dL (0.76-1.27) Estimat Glomerular Filtration Rate 96mL/min (>59) Glucose Level 93mg/dL (60-99) Calcium Level 8.8mg/dL (8.5-10.1) Magnesium Level 2.2mg/dL (1.6-2.6) Total Bilirubin 0.5mg/dL (0.0-1.2) Aspartate Amino Transf (AST/SGOT) 21U/L (0-50) Alanine Aminotransferase (ALT/SGPT) 27U/L (0-44) Alkaline Phosphatase 73U/L (25-160) Total Protein 5.6g/dL (6.4-8.4) Albumin 3.7g/dL (3.4-5.0) Thyroid Stimulating Hormone (TSH) 5.210uIU/mL (0.450-4.500) Discharge Medications Discharge Medications Aspirin Chew (Aspirin Chew) 81 Mg Chew 81 MG PO DAILY Prescribed by: ISIS MACE DO Atorvastatin Calcium (Atorvastatin Calcium) 40 Mg Tablet 40 MG PO HS Prescribed by: ISIS MACE DO Cholecalciferol (Vitamin D3) (Vitamin D3) 2,000 Unit Tablet 2,000 UNIT PO QAM ( Reported) Clopidogrel (Clopidogrel) 75 Mg Tablet 75 MG PO DAILY Prescribed by: ISIS MACE DO Fish Oil/Borage/Flax/Om3,6,9#1 ([place] 3-6-9 1,200 mg Softgel) 1,200 Mg Capsule 1 ,200 MG PO QAM (Reported) Glucosamine/MSM/Chondroitin A (Glucosamine Chondroit MSM Tab) 1 Each Tablet 1 EACH PO QAM (Reported) Metoprolol Succinate ER (Toprol XL) 25 Mg Tablet 6.125 MG PO DAILY Prescribed by: Claudia CROWDER MD Multivit with Calcium,Iron,Min (Multivitamins N-Jxjcymt-Umtk) 1 Each Tablet 1 EACH PO QAM (Reported) Prasterone (Dhea) (Dhea 25) 25 Mg Capsule 25 MG PO QAM (Reported) As needed Acetaminophen (Acetaminophen) 325 Mg Tablet 650 MG PO Q6H PRN PRN For Pain ( Reported) Nitroglycerin SL (Nitrostat) 0.4 Mg Tab.subl 0.4 MG SL Q5MIN PRN PRN For Chest Pain IF SBP > 90 Prescribed by: ISIS MACE, DO Followup Plan Follow-up plan 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 Harris in the near future Discharge Diet: Heart Healthy copies to: Diomedes Harris MD; Haleigh Robb MD, D Geoffrey MD Apr 29, 2017 17:37
== END 2017-04-29 18:15 | disposition home or self-care (01) ==
LOC: SED 15:26 → MOC 18:21
PROVIDERS: ADMIT Hospitalist; ATTEND Hospitalist
DX: R20.0 Anesthesia of skin (principal); I95.9 Hypotension, unspecified; R00.1 Bradycardia, unspecified; R07.9 Chest pain, unspecified; I25.10 Atherosclerotic heart disease of native coronary artery without angina pectoris; E78.5 Hyperlipidemia, unspecified; Z95.5 Presence of coronary angioplasty implant and graft; Z79.82 Long term (current) use of aspirin; Z79.02 Long term (current) use of antithrombotics/antiplatelets; J92.9 Pleural plaque without asbestos
CPT/HCPCS: 36415; 70450; 70549; 70553; 71010; 80053; 81000; 83735; 84443; 84484; 85025; 92610; 93005; 96360; 96372; 99285; A9585; G0378; J1644; J7030